=== PATIENT | female | born 1945 | race Caucasian/White ===

== ENCOUNTER 2019-09-10 20:53 | Inpatient (IN) ==
[2019-09-10] MEDS ORDERED: 0.9 % Sodium Chloride 1,000 ML ONE (23:46)
[2019-09-11] MEDS ORDERED: Naloxone 0.4 MG/ML INJ IVP PRN (00:32)
[2019-09-11 00:52] LABS: Basophils % 0.2 %; Eosinophils # 0.1 K/mcL (0.0-0.6); Eosinophils % 0.3 %; Hematocrit 32.4 % (35.3-44.9); Hemoglobin 11.7 g/dL (11.5-15.4); Immature Granulocytes % 0.4 % (0-4); Lymphocytes # 3.2 K/mcL (0.6-4.6); Lymphocytes % 16.3 %; Mean Corpuscular HGB Conc 36.1 g/dL (31.6-35.5); Mean Corpuscular Hemoglobin 30.2 pg (28.0-33.3); Mean Corpuscular Volume 83.5 fL (83.0-100.0); Mean Platelet Volume 8.5 fL (9.4-12.4); Monocytes # 1.2 K/mcL (0.0-1.3); Monocytes % 6.1 %; Platelet Count 273 K/mcL (140-400); Red Blood Count 3.88 M/mcL (3.82-4.97); Red Cell Distribution Width 12.1 % (11.5-14.5); Segmented Neutrophils % 76.7 %; White Blood Count 19.5 K/mcL (4.3-11.1)
[2019-09-11 01:13] LABS: Alanine Aminotransferase 10 Units/L (7-52); Albumin 3.9 g/dL (3.5-5.7); Albumin/Globulin Ratio 1.4 (1.1-2.2); Alkaline Phosphatase 84 Units/L (34-104); Aspartate Amino Transferase 14 Units/L (13-39); BUN/Creatinine Ratio 18 (6-26); Bilirubin,Total 0.3 mg/dL (0.3-1.0); Blood Urea Nitrogen 31 mg/dL (8-23); Calcium 8.7 mg/dL (8.6-10.3); Carbon Dioxide 19 mEq/L (23-29); Chloride 97 mEq/L (98-107); Globulin 2.7 g/dL (2.4-3.5); Glucose 127 mg/dL (70-105); Magnesium 1.6 mg/dL (1.6-2.6); Osmolality,Calculated 264 (280-300); Phosphorous 3.7 mg/dL (2.7-4.5); Potassium 5.1 mEq/L (3.5-5.1); Sodium 123 mEq/L (136-145); Total Protein 6.6 g/dL (6.4-8.9); eGFR For African Americans 35 (> 60); eGFR For Non-African Americans 29 (> 60)
[2019-09-11 01:41] LABS: Troponin I < 0.03 ng/mL (< 0.04)
[2019-09-11 06:04] LABS: Calcium 8.4 mg/dL (8.6-10.3); Potassium 4.8 mEq/L (3.5-5.1)
[2019-09-11] MEDS ORDERED: Dextrose Gel 15 GM/37.5 ML TUBE PO PRN ×2 (07:37)
[2019-09-11] MEDS ORDERED: *HR* Dextrose 50 % in Water (Syg) 50 ML SYRINGE IVP PRN (07:37)
[2019-09-11] MEDS ORDERED: D5% in Water 1,000 ML IVC PRN (07:37)
[2019-09-11] MEDS ORDERED: D5% in 0.9% NACL 1,000 ML IVC SCH (07:45)
[2019-09-11] MEDS: Piperacillin/Tazobactam 3.375 GM in 0.9 % Sodium Chloride Mini Bag 100 ML IVPB SCH ×2 (08:50→16:39)
[2019-09-11] MEDS: Aspirin Enteric Coated 81 MG Tablet PO SCH (08:52)
[2019-09-11 09:26] LABS: Thyroid Stimulating Hormone 0.638 mcIU/mL (0.340-5.600)
[2019-09-11] MEDS ORDERED: Insulin LISPRO 300 UNITS/3 ML VIAL SQ SCH (12:00)
[2019-09-11] MEDS: *HR* Heparin 5,000 UNIT/ML VIAL SQ SCH (16:38)
[2019-09-11 17:14] LABS: Calcium 8.8 mg/dL (8.6-10.3); Potassium 4.5 mEq/L (3.5-5.1)
[2019-09-11 19:30] LABS: Bilirubin,Urine Negative (Negative); Blood,Urine Trace (Negative); Clarity,Urine Clear (Clear); Color,Urine Yellow (Yellow); Glucose,Urine (UA) Normal (Normal); Ketones,Urine Negative (Negative); Leukocyte Esterase,Urine Trace (Negative); Nitrite,Urine Negative (Negative); Protein,Urine Negative (Neg-Trace); Specific Gravity,Urine 1.013 (1.010-1.025); Urobilinogen,Urine Normal (Normal)
[2019-09-11 19:32] LABS: Bacteria,Urine None Seen per hpf (None-Few); Hyaline Casts,Urine None Seen per lpf (None-Few); RBC,Urine 0-3 per hpf (0-3); Squamous Epithelial Cell,Urine None Seen per lpf (None-Few); WBC,Urine 0-3 per hpf (0-3)
[2019-09-11 19:41] LABS: Sodium, Urine 97.4 mEq/L
[2019-09-11] MEDS: Loratadine 10 MG TABLET PO ONE ×2 (21:20→21:57)
[2019-09-11] MEDS: Acetaminophen 325 MG TABLET PO PRN (22:27)
[2019-09-12] MEDS: Piperacillin/Tazobactam 3.375 GM in 0.9 % Sodium Chloride Mini Bag 100 ML IVPB SCH (00:21)
[2019-09-12 01:24] LABS: ABG Base Excess -4 mEq/L (-2 to 3); ABG HCO3 20 mEq/L (21-27); ABG Oxygen Saturation 99 % (95-98); ABG PCO2 32 mmHg (35-45); ABG PH 7.41 pH Units (7.32-7.45); ABG PO2 145 mmHg (85-104); ABG TCO2 21 mEq/L (20-26); Blood Gas FiO2 4.5 (1-15=lpm or21-100=%)
[2019-09-12] MEDS: *HR* Heparin 5,000 UNIT/ML VIAL SQ SCH ×2 (06:28→19:31)
[2019-09-12 08:55] LABS: Hematocrit 32.6 % (35.3-44.9); Hemoglobin 11.2 g/dL (11.5-15.4); Mean Corpuscular HGB Conc 34.4 g/dL (31.6-35.5); Mean Corpuscular Hemoglobin 29.6 pg (28.0-33.3); Mean Corpuscular Volume 86.2 fL (83.0-100.0); Mean Platelet Volume 8.6 fL (9.4-12.4); Platelet Count 229 K/mcL (140-400); Red Blood Count 3.78 M/mcL (3.82-4.97); Red Cell Distribution Width 12.5 % (11.5-14.5)
[2019-09-12 09:07] LABS: Calcium 8.8 mg/dL (8.6-10.3); Magnesium 1.6 mg/dL (1.6-2.6); Potassium 4.4 mEq/L (3.5-5.1)
[2019-09-12] MEDS: Isosorbide MONOnitrate (24 HR) 30 MG TAB.ER.24H PO SCH (09:46)
[2019-09-12] MEDS: Aspirin Enteric Coated 81 MG Tablet PO SCH (09:47)
[2019-09-12] MEDS: Acetaminophen 325 MG TABLET PO PRN ×2 (09:51→14:15)
[2019-09-12 10:56] LABS: Troponin I < 0.03 ng/mL (< 0.04)
[2019-09-12] MEDS: *HR* HYDROcodone/Acet 5/325 mg TABLET PO PRN (16:32)
[2019-09-13] MEDS: *HR* HYDROcodone/Acet 5/325 mg TABLET PO PRN ×2 (00:27→16:38)
[2019-09-13 05:16] LABS: BUN/Creatinine Ratio 23 (6-26); Blood Urea Nitrogen 21 mg/dL (8-23); Calcium 8.9 mg/dL (8.6-10.3); Carbon Dioxide 22 mEq/L (23-29); Chloride 106 mEq/L (98-107); Glucose 86 mg/dL (70-105); Magnesium 1.5 mg/dL (1.6-2.6); Osmolality,Calculated 278 (280-300); Phosphorous 3.7 mg/dL (2.7-4.5); Potassium 4.3 mEq/L (3.5-5.1); Sodium 133 mEq/L (136-145); eGFR For African Americans > 60 (> 60); eGFR For Non-African Americans 59 (> 60)
[2019-09-13] MEDS: *HR* Heparin 5,000 UNIT/ML VIAL SQ SCH ×2 (05:49→19:26)
[2019-09-13] MEDS: hydrALAZINE 25 MG TABLET PO SCH ×3 (08:46→23:34)
[2019-09-13] MEDS: Isosorbide MONOnitrate (24 HR) 30 MG TAB.ER.24H PO SCH (08:46)
[2019-09-13] MEDS: Aspirin Enteric Coated 81 MG Tablet PO SCH (08:46)
[2019-09-14] MEDS: *HR* Heparin 5,000 UNIT/ML VIAL SQ SCH ×2 (05:14→17:59)
[2019-09-14] MEDS: *HR* HYDROcodone/Acet 5/325 mg TABLET PO PRN (08:07)
[2019-09-14] MEDS: hydrALAZINE 25 MG TABLET PO SCH ×3 (08:07→23:48)
[2019-09-14] MEDS: Aspirin Enteric Coated 81 MG Tablet PO SCH (08:07)
[2019-09-14] MEDS: Isosorbide MONOnitrate (24 HR) 30 MG TAB.ER.24H PO SCH (08:07)
[2019-09-14] MEDS ORDERED: DiphenhydraMINE CREAM 28.4 GM TUBE TP PRN (10:43)
[2019-09-14] MEDS: Metoprolol XL (24 HR) Succ 25 MG TAB.ER.24H PO SCH (13:27)
[2019-09-14] MEDS: Acetaminophen 325 MG TABLET PO PRN (21:58)
[2019-09-15] MEDS: *HR* Heparin 5,000 UNIT/ML VIAL SQ SCH (05:21)
[2019-09-15] MEDS: Aspirin Enteric Coated 81 MG Tablet PO SCH (08:07)
[2019-09-15] MEDS: Metoprolol XL (24 HR) Succ 25 MG TAB.ER.24H PO SCH (08:07)
[2019-09-15] MEDS: Isosorbide MONOnitrate (24 HR) 30 MG TAB.ER.24H PO SCH (08:07)
[2019-09-15] MEDS: hydrALAZINE 25 MG TABLET PO SCH ×2 (08:08→14:26)
[2019-09-15 10:40] VITALS: BP 122/78
== END 2019-09-15 16:05 | DRG 312 ==
LOC: 2NNU → SUATTDRO 09-11 00:32 → 3NENU 09-14 20:47
PROVIDERS: ADMIT Internal Medicine; ATTEND Internal Medicine

== ENCOUNTER 2019-11-18 00:32 | Inpatient (IN) ==
[2019-11-18] MEDS ORDERED: Naloxone 0.4 MG/ML INJ IVP PRN ×2 (03:14→03:19)
[2019-11-18] MEDS ORDERED: *HR* Promethazine 25 MG/ML VIAL IVP PRN (03:14)
[2019-11-18] MEDS ORDERED: Acetaminophen 325 MG TABLET PO PRN (03:19)
[2019-11-18] MEDS ORDERED: *HR* OxyCODONE Immed Rel 5 MG TABLET PO PRN (03:19)
[2019-11-18] MEDS ORDERED: *HR* HYDROcodone/Acet 5/325 mg TABLET PO PRN (03:19)
[2019-11-18 03:54] LABS: Basophils # 0.1 K/mcL (0.0-0.2); Basophils % 0.3 %; Hematocrit 29.5 % (35.3-44.9); Hemoglobin 10.1 g/dL (11.5-15.4); Immature Granulocytes % 0.5 % (0-4); Lymphocytes # 1.3 K/mcL (0.6-4.6); Lymphocytes % 7.6 %; Mean Corpuscular HGB Conc 34.2 g/dL (31.6-35.5); Mean Corpuscular Hemoglobin 28.9 pg (28.0-33.3); Mean Corpuscular Volume 84.3 fL (83.0-100.0); Monocytes # 0.6 K/mcL (0.0-1.3); Monocytes % 3.5 %; Neutrophils # 15.3 K/mcL (1.6-8.9); Platelet Count 289 K/mcL (140-400); Red Cell Distribution Width 11.8 % (11.5-14.5); Segmented Neutrophils % 88.1 %; White Blood Count 17.3 K/mcL (4.3-11.1)
[2019-11-18 04:18] LABS: BUN/Creatinine Ratio 20 (6-26); Blood Urea Nitrogen 21 mg/dL (8-23); Calcium 9.2 mg/dL (8.6-10.3); Carbon Dioxide 21 mEq/L (23-29); Chloride 91 mEq/L (98-107); Glucose 130 mg/dL (70-105); Osmolality,Calculated 255 (280-300); Potassium 4.5 mEq/L (3.5-5.1); Sodium 120 mEq/L (136-145); eGFR For African Americans > 60 (> 60); eGFR For Non-African Americans 51 (> 60)
[2019-11-18] MEDS: 0.9 % Sodium Chloride 1,000 ML IVC SCH ×2 (04:31→15:17)
[2019-11-18 04:50] LABS: Sodium, Urine 41.6 mEq/L
[2019-11-18] MEDS ORDERED: *HR* Heparin 5,000 UNIT/ML VIAL SQ SCH (06:00)
[2019-11-18 08:28] LABS: Potassium 4.4 mEq/L (3.5-5.1)
[2019-11-18] MEDS: Aspirin Enteric Coated 81 MG Tablet PO SCH (08:59)
[2019-11-18] MEDS: Metoprolol XL (24 HR) Succ 25 MG TAB.ER.24H PO SCH (08:59)
[2019-11-18] MEDS: Isosorbide MONOnitrate (24 HR) 30 MG TAB.ER.24H PO SCH (08:59)
[2019-11-18 12:16] LABS: Calcium 9.2 mg/dL (8.6-10.3); Potassium 4.4 mEq/L (3.5-5.1)
[2019-11-18] MEDS ORDERED: Ondansetron 4 MG/2 ML VIAL ONE (12:30)
[2019-11-18] MEDS ORDERED: Lidocaine -MPF 2% 2 ML VIAL ONE ×3 (12:30→13:47)
[2019-11-18] MEDS ORDERED: *HR* FentaNYL (PF) 100 MCG/2 ML VIAL ONE (12:30)
[2019-11-18] MEDS ORDERED: Dexamethasone 4 MG/ML VIAL ONE (12:30)
[2019-11-18] MEDS ORDERED: *HR* HYDROmorphone PF 0.5 MG/0.5 ML SYRINGE IVP PRN (12:31)
[2019-11-18] MEDS ORDERED: Lidocaine HCL 4 ML Topical Solution (Laryng-O-Jet Kit Sterile Pak) TP ONE (12:41)
[2019-11-18] MEDS ORDERED: *HR* PHENYLEPHRINE 1,000 MCG/10 ML SYRINGE IVP ONE (13:12)
[2019-11-18] MEDS ORDERED: *HR* Atropine Sulfate 8 MG/20 ML VIAL IVP ONE (13:29)
[2019-11-18 14:03] LABS: ABG Base Excess -5 mEq/L (-2 to 3); ABG Chloride 94 mEq/L (98-107); ABG Glucose 133 mg/dL (60-95); ABG HCO3 20 mEq/L (21-27); ABG Ionized Calcium 1.28 mmol/L (1.15-1.35); ABG Oxygen Saturation 100 % (95-98); ABG PCO2 37 mmHg (35-45); ABG PH 7.34 pH Units (7.32-7.45); ABG PO2 204 mmHg (85-104); ABG TCO2 21 mEq/L (20-26)
[2019-11-18] MEDS ORDERED: *HR* Heparin 5,000 UNIT/ML VIAL IVP PRN ×4 (14:19→17:50)
[2019-11-18] MEDS ORDERED: *HR* Heparin 5,000 UNIT/ML VIAL IVP ONE (14:19)
[2019-11-18] MEDS ORDERED: Isovue-370 500 ML BOTTLE IVP ONE (14:19)
[2019-11-18] MEDS ORDERED: Heparin 25,000 UNIT/250 ML D5W 25,000 UNIT/250 ML IV.SOLN IVC SCH ×2 (14:30→18:00)
[2019-11-18] MEDS ORDERED: Perflutren Lipid Microsphere 1.3 ML in 0.9 % Sodium Chloride 8.7 ML IVP ONE (14:51)
[2019-11-18 15:01] LABS: Heparin anti-factor XA UFH < 0.04 IU/mL (0.30-0.70); INR 1.1; Prothrombin Time 12.2 Seconds (9.4-12.1)
[2019-11-18] MEDS ORDERED: EPINEPHrine 1 MG/ML VIAL ONE (15:11)
[2019-11-18] MEDS ORDERED: *HR* FentaNYL (PF) 100 MCG/2 ML VIAL IVP PRN (15:15)
[2019-11-18] MEDS ORDERED: *HR* FentaNYL PATCH 25 MCG PATCH TD SCH (15:15)
[2019-11-18] MEDS ORDERED: *HR* FentaNYL (PF) 100 MCG/2 ML VIAL IVP SCH (15:15)
[2019-11-18] MEDS ORDERED: 0.9 % Sodium Chloride 500 ML IVC ONE (15:19)
[2019-11-18 15:20] LABS: Troponin I 0.27 ng/mL (< 0.04)
[2019-11-18 15:26] LABS: Hematocrit 27.7 % (35.3-44.9); Hemoglobin 9.4 g/dL (11.5-15.4); Mean Corpuscular HGB Conc 33.9 g/dL (31.6-35.5); Mean Corpuscular Hemoglobin 29.1 pg (28.0-33.3); Mean Corpuscular Volume 85.8 fL (83.0-100.0); Mean Platelet Volume 8.4 fL (9.4-12.4); Platelet Count 256 K/mcL (140-400); Red Blood Count 3.23 M/mcL (3.82-4.97); Red Cell Distribution Width 11.9 % (11.5-14.5); White Blood Count 22.2 K/mcL (4.3-11.1)
[2019-11-18] MEDS ORDERED: *HR* Etomidate 20 MG/10 ML AMPUL IVP ONE (16:06)
[2019-11-18] MEDS ORDERED: Aminoglycoside Consult 1 EACH MC ONE (16:06)
[2019-11-18] MEDS ORDERED: Lidocaine 2% Syringe 100 MG/5 ML IV ONE (16:06)
[2019-11-18] MEDS ORDERED: *HR* Norepinephrine 4 MG/4 ML VIAL IVC ONE ×2 (16:06→16:20)
[2019-11-18] MEDS ORDERED: D5% in Water 250 ML IV BAG IV ONE (16:06)
[2019-11-18] MEDS ORDERED: *HR* Midazolam HCl 5 MG/5 ML VIAL IVP ONE (16:06)
[2019-11-18] MEDS: Norepinephrine 4 MG in 0.9 % Sodium Chloride 250 ML IVC SCH ×2 (16:12→18:56)
[2019-11-18] MEDS ORDERED: 0.9 % Sodium Chloride 250 ML ONE ×2 (16:20→18:32)
[2019-11-18 16:32] LABS: ABG Base Excess -7 mEq/L (-2 to 3); ABG HCO3 17 mEq/L (21-27); ABG Oxygen Saturation 99 % (95-98); ABG PCO2 30 mmHg (35-45); ABG PH 7.37 pH Units (7.32-7.45); ABG PO2 136 mmHg (85-104); ABG TCO2 18 mEq/L (20-26)
[2019-11-18] MEDS: EPINEPHrine 1 MG in D5% in Water 250 ML IVC SCH ×2 (17:18→18:23)
[2019-11-18] MEDS ORDERED: Azithromycin 500 MG in 0.9 % Sodium Chloride 250 ML IVPB ONE (17:27)
[2019-11-18 17:31] LABS: Hematocrit 27.7 % (35.3-44.9); Hemoglobin 9.3 g/dL (11.5-15.4)
[2019-11-18 17:40] LABS: ABG Ionized Calcium 1.17 mmol/L (1.15-1.35)
[2019-11-18] MEDS: Piperacillin/Tazobactam 3.375 GM in 0.9 % Sodium Chloride Mini Bag 100 ML IVPB SCH (17:47)
[2019-11-18] MEDS: Hydrocortisone Sodium Succ 100 MG/2 ML VIAL IVP SCH ×2 (17:47→23:29)
[2019-11-18] MEDS ORDERED: Ondansetron 4 MG/2 ML VIAL IVP ONE (17:55)
[2019-11-18] MEDS ORDERED: Ampicillin/Sulbactam 3,000 MG in 0.9 % Sodium Chloride Mini Bag 100 ML IVPB SCH (18:00)
[2019-11-18] MEDS ORDERED: Norepinephrine 16 MG in 0.9 % Sodium Chloride 250 ML IVC SCH (18:45)
[2019-11-18] MEDS ORDERED: Phenylephrine 10 MG in 0.9 % Sodium Chloride 250 ML IVC SCH ×2 (18:50→18:51)
[2019-11-18] MEDS: FentaNYL (PF) 1,000 MCG in 0.9 % Sodium Chloride 80 ML IVC SCH (19:07)
[2019-11-18] MEDS ORDERED: CLEAR EYES NATURAL TEARS 15 ML BOTTLE BOTH EYES PRN (19:09)
[2019-11-18 19:52] LABS: Bilirubin,Urine Negative (Negative); Blood,Urine Negative (Negative); Clarity,Urine Clear (Clear); Color,Urine Yellow (Yellow); Glucose,Urine (UA) Normal (Normal); Ketones,Urine Negative (Negative); Leukocyte Esterase,Urine Negative (Negative); Nitrite,Urine Negative (Negative); Protein,Urine Negative (Neg-Trace); Specific Gravity,Urine 1.016 (1.010-1.025); Urobilinogen,Urine Normal (Normal)
[2019-11-18] MEDS ORDERED: 0.9 % Sodium Chloride 1,000 ML IVC ONE (20:01)
[2019-11-18 20:08] LABS: ABG Base Excess -14 mEq/L (-2 to 3); ABG HCO3 13 mEq/L (21-27); ABG Oxygen Saturation 100 % (95-98); ABG PCO2 33 mmHg (35-45); ABG PH 7.19 pH Units (7.32-7.45); ABG PO2 338 mmHg (85-104); ABG TCO2 14 mEq/L (20-26); Blood Gas Modality AF; Blood Gas VT 480 cc
[2019-11-18] MEDS: Norepinephrine 16 MG in 0.9 % Sodium Chloride 500 ML IVC SCH (20:35)
[2019-11-18] MEDS: Phenylephrine 50 MG in 0.9 % Sodium Chloride 250 ML IVC SCH (20:38)
[2019-11-18] MEDS ORDERED: Sodium Bicarbonate 150 MEQ in D5% in Water 1,000 ML IVC SCH (20:45)
[2019-11-18] MEDS ORDERED: 0.9 % Sodium Chloride 1,000 ML ONE (20:53)
[2019-11-18] MEDS ORDERED: ISOVUE-370 200 ML INFUS..BTL ONE (20:54)
[2019-11-18] MEDS ORDERED: Heparin 1,000 UNITS/500 mL 500 ML ONE (20:54)
[2019-11-18] MEDS ORDERED: Nitroglycerin 1,000 MCG/10 ML VIAL IV ONE (20:54)
[2019-11-18] MEDS ORDERED: *HR* Heparin 10,000 UNIT/10 ML VIAL ONE (20:54)
[2019-11-18] MEDS ORDERED: D5% in Water 250 ML ONE (20:54)
[2019-11-18] MEDS: Pantoprazole 40 MG VIAL IVP SCH (21:00)
[2019-11-18] MEDS: Chlorhexidine Rinse 15 ML MOUTHWASH MM SCH (21:00)
[2019-11-18] MEDS: CLEAR EYES NATURAL TEARS 15 ML BOTTLE BOTH EYES SCH (21:02)
[2019-11-18] MEDS ORDERED: Calcium Gluconate 1gm/50mL 1 GM/50 ML BAG IVPB ONE (21:15)
[2019-11-18 22:10] LABS: ABG Base Excess -18 mEq/L (-2 to 3); ABG HCO3 10 mEq/L (21-27); ABG Oxygen Saturation 99 % (95-98); ABG PCO2 31 mmHg (35-45); ABG PH 7.12 pH Units (7.32-7.45); ABG PO2 167 mmHg (85-104); ABG TCO2 11 mEq/L (20-26); Blood Gas VT 480 cc
[2019-11-18 23:19] LABS: Troponin I 1.95 ng/mL (< 0.04)
[2019-11-18 23:33] LABS: Thyroid Stimulating Hormone 1.355 mcIU/mL (0.340-5.600)
[2019-11-18 23:34] LABS: Triiodothyronine (T3) Free 2.6 pg/mL (2.50-3.90)
[2019-11-19] MEDS: CLEAR EYES NATURAL TEARS 15 ML BOTTLE BOTH EYES SCH ×4 (00:33→11:58)
[2019-11-19] MEDS: Piperacillin/Tazobactam 3.375 GM in 0.9 % Sodium Chloride Mini Bag 100 ML IVPB SCH ×2 (01:33→09:22)
[2019-11-19] MEDS: FentaNYL (PF) 1,000 MCG in 0.9 % Sodium Chloride 80 ML IVC SCH ×3 (01:39→12:49)
[2019-11-19] MEDS: Phenylephrine 50 MG in 0.9 % Sodium Chloride 250 ML IVC SCH (01:40)
[2019-11-19 01:53] LABS: Adenovirus Not Detected (Not Detect); Bordetella Pertussis Not Detected (Not Detect); Chlamydophila pneumoniae Not Detected (Not Detect); Coronavirus 229E Not Detected (Not Detect); Coronavirus HKU1 Not Detected (Not Detect); Coronavirus NL63 Not Detected (Not Detect); Coronavirus OC43 Not Detected (Not Detect); Human Metapneumovirus Not Detected (Not Detect); Human Rhinovirus/Enterovirus Not Detected (Not Detect); Influenza A Subtype 2009 H1 Not Detected (Not Detect); Influenza B Not Detected (Not Detect); Mycoplasma pneumoniae Not Detected (Not Detect); Parainfluenza Virus 1 Not Detected (Not Detect); Parainfluenza Virus 2 Not Detected (Not Detect); Parainfluenza Virus 3 Not Detected (Not Detect); Parainfluenza Virus 4 Not Detected (Not Detect); Respiratory Syncytial Virus Not Detected (Not Detect)
[2019-11-19 04:24] LABS: ABG Base Excess -8 mEq/L (-2 to 3); ABG HCO3 18 mEq/L (21-27); ABG Oxygen Saturation 99 % (95-98); ABG PCO2 37 mmHg (35-45); ABG PH 7.28 pH Units (7.32-7.45); ABG PO2 150 mmHg (85-104); ABG TCO2 19 mEq/L (20-26); Blood Gas Modality AF; Blood Gas VT 480 cc
[2019-11-19 04:25] LABS: Basophils % 0.1 %
[2019-11-19 04:27] LABS: Hemoglobin 9.6 g/dL (11.5-15.4); Lymphocytes # 1.4 K/mcL (0.6-4.6); Lymphocytes % 4.8 %; Mean Corpuscular HGB Conc 34.3 g/dL (31.6-35.5); Mean Corpuscular Hemoglobin 30.3 pg (28.0-33.3); Mean Corpuscular Volume 88.3 fL (83.0-100.0); Mean Platelet Volume 8.9 fL (9.4-12.4); Monocytes # 0.9 K/mcL (0.0-1.3); Monocytes % 3.1 %; Neutrophils # 27.3 K/mcL (1.6-8.9); Platelet Count 207 K/mcL (140-400); Red Blood Count 3.17 M/mcL (3.82-4.97); Red Cell Distribution Width 12.3 % (11.5-14.5)
[2019-11-19 04:33] LABS: ABG Ionized Calcium 1.11 mmol/L (1.15-1.35)
[2019-11-19 04:53] LABS: Platelet Estimate Normal (Normal)
[2019-11-19 05:11] LABS: Alanine Aminotransferase 2813 Units/L (7-52); Aspartate Amino Transferase > 3000 Units/L (13-39); Thyroid Stimulating Hormone 0.945 mcIU/mL (0.340-5.600)
[2019-11-19 05:12] LABS: Albumin 2.9 g/dL (3.5-5.7); Albumin/Globulin Ratio 1.5 (1.1-2.2); Alkaline Phosphatase 110 Units/L (34-104); BUN/Creatinine Ratio 20 (6-26); Bilirubin,Total 0.9 mg/dL (0.3-1.0); Blood Urea Nitrogen 29 mg/dL (8-23); Calcium 7.8 mg/dL (8.6-10.3); Carbon Dioxide 16 mEq/L (23-29); Chloride 98 mEq/L (98-107); Globulin 1.9 g/dL (2.4-3.5); Glucose 279 mg/dL (70-105); Magnesium 2.5 mg/dL (1.6-2.6); Osmolality,Calculated 280 (280-300); Phosphorous 4.4 mg/dL (2.7-4.5); Potassium 4.4 mEq/L (3.5-5.1); Sodium 127 mEq/L (136-145); Total Protein 4.8 g/dL (6.4-8.9); eGFR For African Americans 43 (> 60); eGFR For Non-African Americans 35 (> 60)
[2019-11-19] MEDS: Calcium Gluconate 1gm/50mL 1 GM/50 ML BAG IVPB SCH ×3 (05:35→07:42)
[2019-11-19] MEDS: Pantoprazole 40 MG VIAL IVP SCH (07:45)
[2019-11-19] MEDS: Chlorhexidine Rinse 15 ML MOUTHWASH MM SCH (07:45)
[2019-11-19] MEDS: Metoprolol XL (24 HR) Succ 25 MG TAB.ER.24H PO SCH (07:46)
[2019-11-19] MEDS: Aspirin Enteric Coated 81 MG Tablet PO SCH (07:46)
[2019-11-19] MEDS: Isosorbide MONOnitrate (24 HR) 30 MG TAB.ER.24H PO SCH (07:46)
[2019-11-19 08:36] LABS: Hepatitis B Surface Antigen Nonreactive (Nonreactive)
[2019-11-19] MEDS ORDERED: Azithromycin 500 MG in 0.9 % Sodium Chloride 250 ML IVPB SCH (09:00)
[2019-11-19 09:05] LABS: Hepatitis C Virus Antibody Nonreactive (Nonreactive)
[2019-11-19 09:06] LABS: Hepatitis B Core IgM Nonreactive (Nonreactive)
[2019-11-19 09:07] LABS: Hepatitis A Antibody IgM Nonreactive (Nonreactive)
[2019-11-19 10:29] LABS: INR 1.7; Prothrombin Time 19.1 Seconds (9.4-12.1)
[2019-11-19 12:44] LABS: Acetaminophen < 10 mcg/mL (10-20)
[2019-11-19 12:49] LABS: Lactate Dehydrogenase > 3600 Units/L (140-271)
[2019-11-19] MEDS: Norepinephrine 16 MG in 0.9 % Sodium Chloride 500 ML IVC SCH (13:30)
[2019-11-19] MEDS ORDERED: *HR* LORazepam 2 MG/ML VIAL IVP PRN (13:58)
[2019-11-19] MEDS ORDERED: Atropine Sulfate 1% 40 DROP/2 ML BOTTLE SL PRN (13:59)
[2019-11-19] MEDS ORDERED: FentaNYL (PF) 1,000 MCG in 0.9 % Sodium Chloride 80 ML IVC SCH (13:59)
[2019-11-19] MEDS ORDERED: Haloperidol Lactate 5 MG/ML VIAL IVP PRN (13:59)
[2019-11-19] MEDS ORDERED: *HR* FentaNYL (PF) 100 MCG/2 ML VIAL IVP SCH (14:00)
[2019-11-19 14:07] VITALS: BP 124/56
[2019-11-19 23:44] LABS: Acinetobacter baumannii by PCR Not Detected (Not Detect); Candida albicans by PCR Not Detected (Not Detect); Candida glabrata by PCR Not Detected (Not Detect); Candida krusei by PCR Not Detected (Not Detect); Candida parapsilosis by PCR Not Detected (Not Detect); Candida tropicalis by PCR Not Detected (Not Detect); Enterobacter cloacae Cmplx PCR Not Detected (Not Detect); Enterobacteriaceae by PCR Not Detected (Not Detect); Enterococcus by PCR Not Detected (Not Detect); Escherichia coli by PCR Not Detected (Not Detect); Klebsiella oxytoca by PCR Not Detected (Not Detect); Klebsiella pneumoniae by PCR Not Detected (Not Detect); Proteus by PCR Not Detected (Not Detect); Pseudomonas aeruginosa by PCR Not Detected (Not Detect); Serratia marcescens by PCR Not Detected (Not Detect); Staphylococcus aureus by PCR Not Detected (Not Detect); Staphylococcus by PCR DETECTED (Not Detect); Streptococcus agalactiae(B)PCR Not Detected (Not Detect); Streptococcus by PCR Not Detected (Not Detect); Streptococcus pneumoniae PCR Not Detected (Not Detect); Streptococcus pyogenes (A) PCR Not Detected (Not Detect); mecA Methicillin-Resist Gene Not Detected (Not Detect)
[2019-11-22 15:05] LABS: Mycoplasma pneumoniae IgG 0.12 U/L (<=0.09)
== END 2019-11-19 16:07 | disposition expired | DRG 963 ==
LOC: 3NENU → SUATTDRO 03:14 → ICNU 13:52
PROVIDERS: ADMIT Internal Medicine; ATTEND Internal Medicine